=== PATIENT | male | born 1940 | race Caucasian/White ===

== ENCOUNTER 2017-08-02 05:39 | Inpatient (IN) | payer OTHER, MEDICARE ==
[~2017-08-02] VITALS: Ht 182.9 cm; Wt 82.5 kg
[2017-08-02] VITALS (12 sets, daily range): BP systolic 124–160; BP diastolic 66–91; PULSE 78–90; TEMP 36.4–36.8; O2SAT 93–96; Ht 182.9 cm; Wt 82.5 kg
[~2017-08-02 05:39] MED LIST: ASCO500T16 PO; CHOL1000 PO; DOCU-94 PO; DUTA0.5C PO; FERR325T5 PO; FLV1 PO; FSM70 PO; GABA-113 PO; INSDGIPEN SC; LEVO88TA PO; MULT-513 PO; MULTCAP7 PO; PANT40TA PO; PROB1CAP6 PO; THIA1TAB PO
--- NOTE | 2017-08-02 05:56 | EMERGENCY ROOM VISIT NOTE ---
History First contact with patient: 05:41 Stated Complaint: URINARY RETENTION History of Present Illness The patient is a 76 year old male who presents to the Emergency Room evaluation of fluid build up. Notes 2 weeks increasing abdominal size. Associated mild discomfort as well as left leg swelling as well. Over last few days developing some shob with exertion. Notes this morning abdomen so large difficulty laying flat. Denies history of issues with fluid overload. Admits history of CAD with [place]. Denies history of Heart Failure. Denies significant pain, nausea , cp, syncope, shob at rest, headache, back pain, urinary/bowel changes, nor other acute symptoms. No new medications. Nothing makes better, exertion makes worse. Denies increase in fluid intake. Admits 1 etoh drink daily and previous history of heavy use but denies ever being told he has cirrhosis. Denies bloody stools nor other bleeding. Lives with . He is retired. Review of Systems See HPI for pertinent positives & negatives. A total of 10 systems reviewed and were otherwise negative. Past Medical/Surgical History Medical Problems: (1) Coronary artery disease (2) Diabetes mellitus, type II (3) DJD (degenerative joint disease) (4) GERD (gastroesophageal reflux disease) (5) History of atrial fibrillation (6) Hyperlipidemia (7) Hypertension (8) Hypothyroidism (9) Idiopathic peripheral neuropathy (10) Infected prosthetic knee joint (11) Osteomyelitis of right leg (12) Septic arthritis (13) UTI (urinary tract infection) Surgical Problems: (1) Hx of CABG (2) S/P hip replacement (3) Status post right partial knee replacement Family History Abdominal aortic aneurysm MOTHER Social History Smoking Status: Former Smoker Alcohol Use: none Drug Use: none Marital Status: Housing Status: assisted living Occupation Status: retired Current/Historical Medications Scheduled Alendronate Sodium (Alendronate Sodium), 70 MG PO WK Dutasteride (Avodart), 0.5 MG PO QDD Insulin Aspart (Novolog Flexpen), 5-7 UNITS SC QDD Insulin Glargine (Basaglar Kwikpen), 14 UNITS SC QDD Levothyroxine Sodium (Synthroid), 88 MCG PO QAM Metoprolol Succ (Toprol Xl) (Toprol-Xl), 25 MG PO HS Multiple Vitamins W/ Minerals (Eye Vitamins), 1 CAP PO DAILY Multivitamins/Minerals (Mvi With Minerals), 1 TAB PO DAILY Pantoprazole (Protonix), 20 MG PO QAM Probiotic Product (Probiotic Acidophilus), 1 CAP PO DAILY Tamsulosin Hcl (Flomax), 0.4 MG PO QPM Scheduled PRN Tramadol (Ultram), 25 MG PO TID PRN for Pain Physical Exam Vital Signs Date Time Temp Pulse Resp B/P (MAP) Pulse Ox O2 Delivery O2 Flow Rate FiO2 08/02/17 07:50 80 20 131/76 95 Room Air 08/02/17 06:26 84 24 134/88 94 Room Air 08/02/17 06:00 86 08/02/17 05:40 36.9 87 18 167/95 97 Room Air Physical Exam GENERAL: Patient is tired appearing and in mild distress. EYES: No scleral icterus, unremarkable pupils. ENT: Mucous membranes dry, no nasal congestion. NECK: No masses appreciated, no meningismus, trachea is midline. RESPIRATORY: No dyspnea. Clear to auscultation and equal bilaterally. No wheeze , no rhonchi. CARDIOVASCULAR: Regular rate and rhythm. No murmurs, rubs, gallops appreciated. GASTROINTESTINAL: Distended moderately firm abdomen which is non-tender and has pitting edema along lower abdomen. No peritonitis. Distant bowel sounds positive. No masses appreciated. BACK: Mild edema lower back. No midline tenderness, no CVA tenderness EXTREMITIES: Right leg AKA. Left leg with 3 + pitting edema throughout without calf TTP nor pain with ROM. Normal pulses/sensation, no cyanosis. NEUROLOGIC: Alert and oriented, no acute motor or sensory deficits, no focal weakness, cranial nerves grossly intact. SKIN: No rash, no jaundice, no diaphoresis. Medical Decision & Procedures ER Provider Diagnostic Interpretation: Radiology results stated below per my review and radiologist interpretation: CT Abdo/Pelv with IV Contrast IMPRESSION: 1. Large volume ascites. 2. Trace bilateral pleural effusions. 3. Acute to subacute nondisplaced left L2 transverse process fracture. 4. No evidence for bowel obstruction. 5. Colonic diverticulosis. 6. Cholelithiasis. 7. Moderate to high-grade stenosis within the right superficial femoral artery. 8. Cirrhotic liver. Electronically signed by: Camacho Cid M.D. 08/02/2017 7:58 AM Laboratory Results 08/02/17 05:55 Red Blood Count 3.81, Mean Corpuscular Volume 95.0, Mean Corpuscular Hemoglobin 33.6, Mean Corpuscular Hemoglobin Concent 35.4, Mean Platelet Volume 9.8, Neutrophils (%) (Auto) 65.3, Lymphocytes (%) (Auto) 22.0, Monocytes (%) (Auto) 9.1, Eosinophils (%) (Auto) 2.8, Basophils (%) (Auto) 0.4, Neutrophils # (Auto) 3.23, Lymphocytes # (Auto) 1.09, Monocytes # (Auto) 0.45, Eosinophils # (Auto) 0.14, Basophils # (Auto) 0.02 08/02/17 05:55 Test 08/02/17 05:55 White Blood Count 4.95 K/uL (4.8-10.8) Red Blood Count 3.81 M/uL (4.7-6.1) Hemoglobin 12.8 g/dL (14.0-18.0) Hematocrit 36.2 % (42-52) Mean Corpuscular Volume 95.0 fL (80-100) Mean Corpuscular Hemoglobin 33.6 pg (25-34) Mean Corpuscular Hemoglobin Concent 35.4 g/dl (32-36) Platelet Count 112 K/uL (130-400) Mean Platelet Volume 9.8 fL (7.4-10.4) Neutrophils (%) (Auto) 65.3 % Lymphocytes (%) (Auto) 22.0 % Monocytes (%) (Auto) 9.1 % Eosinophils (%) (Auto) 2.8 % Basophils (%) (Auto) 0.4 % Neutrophils # (Auto) 3.23 K/uL (1.4-6.5) Lymphocytes # (Auto) 1.09 K/uL (1.2-3.4) Monocytes # (Auto) 0.45 K/uL (0.11-0.59) Eosinophils # (Auto) 0.14 K/uL (0-0.5) Basophils # (Auto) 0.02 K/uL (0-0.2) RDW Standard Deviation 48.2 fL (36.4-46.3) RDW Coefficient of Variation 13.9 % (11.5-14.5) Immature Granulocyte % (Auto) 0.4 % Immature Granulocyte # (Auto) 0.02 K/uL (0.00-0.02) Prothrombin Time 11.8 SECONDS (9.0-12.0) Prothromb Time International Ratio 1.1 (0.9-1.1) Activated Partial Thromboplast Time 30.2 SECONDS (21.0-31.0) Partial Thromboplastin Ratio 1.2 Anion Gap 3.0 mmol/L (3-11) Est Creatinine Clear Calc Drug Dose 51.1 ml/min Estimated GFR () 59.3 Estimated GFR (Non- 51.2 BUN/Creatinine Ratio 14.4 (10-20) Calcium Level 8.0 mg/dl (8.5-10.1) Magnesium Level 2.0 mg/dl (1.8-2.4) Total Bilirubin 1.1 mg/dl (0.2-1) Direct Bilirubin 0.3 mg/dl (0-0.2) Aspartate Amino Transf (AST/SGOT) 42 U/L (15-37) Alanine Aminotransferase (ALT/SGPT) 35 U/L (12-78) Alkaline Phosphatase 148 U/L (45-117) Troponin I 0.016 ng/ml (0-0.045) Pro-B-Type Natriuretic Peptide 1298 pg/ml (0-1800) Total Protein 7.4 gm/dl (6.4-8.2) Albumin 2.8 gm/dl (3.4-5.0) Lipase 26 U/L (73-393) Medical Decision 76 yr old male with acute worsening of abdominal distension now leading to difficulty breathing. CXR with high diaphragms. Labs looking ok and no clear evidence of this being cardiac in origin. [place] that without history of this going ahead with CT is reasonable. CT reveals large ascites with cirrhotic liver. When confronted about liver findings admits heavy drinking previously. While mild Bili elevation, his INR and other labs look OK and no clear evidence of acute liver failure. He has no fevers nor TTP of abdomen thus I don't feel this represents acute infection/SBP. With amount of ascites in abdomen/low back I do not think that left leg swelling would be DVT related, though will defer imaging to hospitalist. As he can not even take a deep breath due to abdominal distention, is unable to get around without SHOB, and this is a new issue i feel bringing in is reasonable and thus Hospitalist consulted. I do not feel that this represents PE either as he does not primarily have any difficulty breathing at rest nor tachycardia nor hypotensive. Furthermore, I do feel he is intravascularly dehydrated given exam and thus will give very gentle hydration while awaiting hospitalist evaluation. Medication Reconcilliation Current Medication List: was personally reviewed by me Blood Pressure Screening Patient's blood pressure: Normal blood pressure Impression Primary Impression: Anasarca Additional Impressions: Liver failure Ascites due to alcoholic cirrhosis Departure Information Referrals Ifrah Skaggs M.D. (PCP) Problem Qualifiers
[2017-08-02 06:13] LABS: BASO % 0.4 %; BASO ABS # 0.02 K/uL (0-0.2); EOS % 2.8 %; EOS ABS # 0.14 K/uL (0-0.5); HEMATOCRIT 36.2 % (42-52); HEMOGLOBIN 12.8 g/dL (14.0-18.0); IG# 0.02 K/uL (0.00-0.02); LYMPH ABS # 1.09 K/uL (1.2-3.4); MEAN CORPUSCULAR HEMOGLOBIN 33.6 pg (25-34); MEAN CORPUSCULAR HGB CONC 35.4 g/dl (32-36); MEAN PLATELET VOLUME 9.8 fL (7.4-10.4); MONO % 9.1 %; MONO ABS # 0.45 K/uL (0.11-0.59); NEUT % 65.3 %; NEUT ABS # 3.23 K/uL (1.4-6.5); PLATELET COUNT 112 K/uL (130-400); RED CELL DISTRIBUTION WIDTH CV 13.9 % (11.5-14.5); RED CELL DISTRIBUTION WIDTH SD 48.2 fL (36.4-46.3); WHITE BLOOD COUNT 4.95 K/uL (4.8-10.8)
[2017-08-02] MEDS ORDERED: TRAM-10 PO (06:20)
[2017-08-02] MEDS ORDERED: INSU100I23 SC (06:20)
[2017-08-02] MEDS ORDERED: METO25TA3 PO (06:20)
[2017-08-02] MEDS ORDERED: PRT/20 PO (06:20)
[2017-08-02] MEDS ORDERED: NVLGI/PEN SC (06:20)
[2017-08-02] MEDS ORDERED: TAMS0.4C38 PO (06:20)
[2017-08-02 06:22] LABS: INR 1.1 (0.9-1.1); PTT PATIENT 30.2 SECONDS (21.0-31.0)
--- NOTE | 2017-08-02 06:31 | DIAGNOSTIC IMAGING REPORT ---
CHEST ONE VIEW PORTABLE CLINICAL HISTORY: shob with exertion dyspnea COMPARISON STUDY: 04/19/2015 FINDINGS: Poor inspiratory volumes. Lungs are clear. No significant cardiac enlargement. Prior median sternotomy. IMPRESSION: No acute process. Chronic and postoperative change. The above report was generated using voice recognition software. It may contain grammatical, syntax or spelling errors. Electronically signed by: Can Zepeda M.D. 08/02/2017 6:30 AM Dictated Date/Time: 08/02/2017 6:30 AM
[2017-08-02 06:33] LABS: ALBUMIN 2.8 gm/dl (3.4-5.0); CREATININE 1.33 mg/dl (0.60-1.40); POTASSIUM 3.4 mmol/L (3.5-5.1)
[2017-08-02 06:38] LABS: TOTAL PROTEIN 7.4 gm/dl (6.4-8.2)
[2017-08-02] MEDS ORDERED: OPTIRAY 320 IV PRN (07:15)
--- NOTE | 2017-08-02 07:59 | DIAGNOSTIC IMAGING REPORT ---
ABDOMEN AND PELVIS CT WITH IV CONTRAST CT DOSE: 1113.79 mGycm HISTORY: Diffuse abdominal pain. Urinary retention. TECHNIQUE: Multiaxial CT images of the abdomen and pelvis were performed following the use of intravenous contrast. A dose lowering technique was utilized adhering to the principles of ALARA. COMPARISON STUDY: Abdominal ultrasound 10/10/2014. FINDINGS: Trace bilateral pleural effusions. Bibasilar densities favor subsegmental atelectasis. There are poststernotomy changes. There is a left total hip arthroplasty. Old, healed bilateral rib fractures. Nondisplaced left L2 transverse osseous fracture. This favors an acute to subacute fracture. No pneumoperitoneum. No pneumatosis. Large volume ascites. Bladder is not well visualized due to the compression from the ascites and metallic artifact within the left hip prosthesis. However, the bladder is not distended. Colonic diverticulosis. No evidence for bowel obstruction. Normal appendix. Atrophic liver demonstrating a nodular contour consistent with cirrhosis. No hepatic or splenic masses. Calcified granuloma seen throughout the liver and spleen. Cholelithiasis. The adrenal glands are unremarkable. Bilateral cortical renal scarring. No hydronephrosis. No retroperitoneal lymphadenopathy. Near complete fatty replacement of the pancreas. Atrophy of the left iliopsoas muscle. Mild body wall edema. Moderate to high-grade stenosis within the right superficial femoral artery. IMPRESSION: 1. Large volume ascites. 2. Trace bilateral pleural effusions. 3. Acute to subacute nondisplaced left L2 transverse process fracture. 4. No evidence for bowel obstruction. 5. Colonic diverticulosis. 6. Cholelithiasis. 7. Moderate to high-grade stenosis within the right superficial femoral artery. 8. Cirrhotic liver. Electronically signed by: Camacho Cid M.D. 08/02/2017 7:58 AM Dictated Date/Time: 08/02/2017 7:44 AM
[2017-08-02] MEDS ORDERED: SODIUM CHLORIDE 0.9% 1000ML 1,000 ML IV STA (08:09)
[2017-08-02] MEDS ORDERED: SODIUM CHLORIDE 0.9% 1000ML 1,000 ML IV SCH (09:30)
[2017-08-02] MEDS ORDERED: DEXTROSE 50% 50 ML SYR IV PRN (09:30)
[2017-08-02] MEDS ORDERED: GLUCOSE 40% GEL 15 GM TUBE PO PRN (09:30)
[2017-08-02] MEDS ORDERED: GLUCAGON FOR INJ 1 MG VIAL SQ PRN (09:30)
[2017-08-02] MEDS ORDERED: GLUCOSE 10 TABS/TUBE PO PRN (09:30)
--- NOTE | 2017-08-02 09:35 | History and Physical ---
History & Physical Date & Time of Service: Aug 02, 2017 at 09:27 Chief Complaint: Urinary Retention Primary Care Physician: Ifrah Skaggs M.D. History of Present Illness Source: patient, clinic records, hospital records Patient is a 76-year-old male with a PMH of CAD (s/p CABG), DM II, paroxysmal A. fib, HTN, h/o heavy alcohol use and other medical problems listed below who presents with abdominal fullness. States that he has had fluid buildup in his belly for the past 2 weeks with associated discomfort. Over the past few days, patient has become short of breath with any type of exertion. Also has increased swelling and left leg. Denies previous diagnosis of cirrhosis or CHF. Previous history of heavy drinking but has decreased to 1 drink daily for the past 10-15 years. Endorses intermittent nausea and diarrhea over the past few weeks. Poor PO intake due to decreased appetite. Decreased urine output. Denies fever, chills, lightheadedness, headache, visual changes, cough, chest pain, abdominal pain, back pain, dysuria, melena, hematochezia or constipation. Per daughters at bedside, patient has dementia but no acute mental decompensation. Lives with in a house and ambulates by scooter. PCP is Dr. Skaggs. Past Medical/Surgical History Medical Problems: (1) Anemia Status: Chronic (2) Coronary artery disease Status: Chronic (3) Diabetes mellitus, type II Status: Chronic (4) DJD (degenerative joint disease) Status: Chronic (5) GERD (gastroesophageal reflux disease) Status: Chronic (6) History of atrial fibrillation Status: Chronic (7) Hyperlipidemia Status: Chronic (8) Hypertension Status: Chronic (9) Hypothyroidism Status: Chronic (10) Thrombocytopenia Status: Chronic Surgical Problems: (1) Hx of CABG Status: Chronic (2) S/P hip replacement Status: Chronic (3) Status post above knee amputation of right lower extremity Status: Chronic (4) Status post right partial knee replacement Status: Chronic Family History Abdominal aortic aneurysm MOTHER Social History Smoking Status: Former Smoker Alcohol Use: heavy (Remote h/o heavy use. 1 drink daily for the past 10-15 years. ) Drug Use: none Marital Status: Housing status: lives with significant other Occupational Status: retired Immunizations History of Influenza Vaccine: Yes Influenza Vaccine Date: Jan 15, 2008 History of Tetanus Vaccine?: Yes History of Pneumococcal: Yes Pneumococcal Date: Jan 15, 2004 History of Hepatitis B Vaccine: No Allergies Coded Allergies: Vancomycin (Verified Allergy, Unknown, 08/02/17) Linezolid (Verified Adverse Reaction, Severe, thrombocytopenia, 08/02/17) Ethanol (Verified Adverse Reaction, Intermediate, GI SYMPTOMS, 08/02/17) Fentanyl (Verified Adverse Reaction, Intermediate, GI SYMPTOMS, 08/02/17) Carvedilol (Verified Adverse Reaction, Unknown, NAUSEA AND VOMITING, ) HMG-CoA-R Inhibitors (Verified Adverse Reaction, Unknown, STATINS, 08/02/17 ) Simvastatin (Verified Adverse Reaction, Unknown, ., 08/02/17) Home Medications Scheduled Alendronate Sodium (Alendronate Sodium), 70 MG PO WK Dutasteride (Avodart), 0.5 MG PO QDD Insulin Aspart (Novolog Flexpen), 5-7 UNITS SC QDD Insulin Glargine (Basaglar Kwikpen), 14 UNITS SC HS Levothyroxine Sodium (Synthroid), 88 MCG PO QAM Metoprolol Succ (Toprol Xl) (Toprol-Xl), 25 MG PO HS Multiple Vitamins W/ Minerals (Eye Vitamins), 1 CAP PO DAILY Multivitamins/Minerals (Mvi With Minerals), 1 TAB PO DAILY Pantoprazole (Protonix), 20 MG PO QAM Probiotic Product (Probiotic Acidophilus), 1 CAP PO DAILY Tamsulosin Hcl (Flomax), 0.4 MG PO QPM Scheduled PRN Tramadol (Ultram), 0.5-1 TAB PO TID PRN for Pain Review of Systems Ten systems reviewed and negative except as noted in the HPI. Physical Exam Vital Signs Date Time Temp Pulse Resp B/P (MAP) Pulse Ox O2 Delivery O2 Flow Rate FiO2 08/02/17 09:14 79 08/02/17 08:50 81 22 144/80 96 Room Air 08/02/17 08:21 95 Room Air 08/02/17 07:50 80 20 131/76 95 Room Air 08/02/17 06:26 84 24 134/88 94 Room Air 08/02/17 06:00 86 08/02/17 05:40 36.9 87 18 167/95 97 Room Air General Appearance: WD/WN, no apparent distress Head: normocephalic, atraumatic Eyes: normal inspection, PERRL, sclerae normal ENT: normal ENT inspection, hearing grossly normal, pharynx normal (dry mucous membranes ) Neck: supple, thyroid normal, trachea midline Respiratory/Chest: chest non-tender, lungs clear, normal breath sounds, no respiratory distress, no accessory muscle use Cardiovascular: regular rate, rhythm, normal peripheral pulses, + systolic murmur Abdomen/GI: normal bowel sounds (distant), non tender, no pulsatile mass, + distended (Firm, + fluid wave, no guarding ) Back: normal inspection Extremities/Musculoskelatal: + swelling (L leg 3+ pitting edema ), + pertinent finding (s/p R AKA) Neurologic/Psych: no motor/sensory deficits, alert, normal mood/affect, oriented x 3 Skin: normal color, warm/dry Diagnostics Laboratory Results Results Past 24 Hours Test 08/02/17 05:55 Range/Units White Blood Count 4.95 4.8-10.8 K/uL Red Blood Count 3.81 4.7-6.1 M/uL Hemoglobin 12.8 14.0-18.0 g/dL Hematocrit 36.2 42-52 % Mean Corpuscular Volume 95.0 80-100 fL Mean Corpuscular Hemoglobin 33.6 25-34 pg Mean Corpuscular Hemoglobin Concent 35.4 32-36 g/dl Platelet Count 112 130-400 K/uL Mean Platelet Volume 9.8 7.4-10.4 fL Neutrophils (%) (Auto) 65.3 % Lymphocytes (%) (Auto) 22.0 % Monocytes (%) (Auto) 9.1 % Eosinophils (%) (Auto) 2.8 % Basophils (%) (Auto) 0.4 % Neutrophils # (Auto) 3.23 1.4-6.5 K/uL Lymphocytes # (Auto) 1.09 1.2-3.4 K/uL Monocytes # (Auto) 0.45 0.11-0.59 K/uL Eosinophils # (Auto) 0.14 0-0.5 K/uL Basophils # (Auto) 0.02 0-0.2 K/uL RDW Standard Deviation 48.2 36.4-46.3 fL RDW Coefficient of Variation 13.9 11.5-14.5 % Immature Granulocyte % (Auto) 0.4 % Immature Granulocyte # (Auto) 0.02 0.00-0.02 K/uL Prothrombin Time 11.8 9.0-12.0 SECONDS Prothromb Time International Ratio 1.1 0.9-1.1 Activated Partial Thromboplast Time 30.2 21.0-31.0 SECONDS Partial Thromboplastin Ratio 1.2 Sodium Level 140 136-145 mmol/L Potassium Level 3.4 3.5-5.1 mmol/L Chloride Level 107 98-107 mmol/L Carbon Dioxide Level 31 21-32 mmol/L Anion Gap 3.0 3-11 mmol/L Blood Urea Nitrogen 19 7-18 mg/dl Creatinine 1.33 0.60-1.40 mg/dl Est Creatinine Clear Calc Drug Dose 51.1 ml/min Estimated GFR () 59.3 Estimated GFR (Non- 51.2 BUN/Creatinine Ratio 14.4 10-20 Random Glucose 90 70-99 mg/dl Calcium Level 8.0 8.5-10.1 mg/dl Magnesium Level 2.0 1.8-2.4 mg/dl Total Bilirubin 1.1 0.2-1 mg/dl Direct Bilirubin 0.3 0-0.2 mg/dl Aspartate Amino Transf (AST/SGOT) 42 15-37 U/L Alanine Aminotransferase (ALT/SGPT) 35 12-78 U/L Alkaline Phosphatase 148 45-117 U/L Troponin I 0.016 0-0.045 ng/ml Pro-B-Type Natriuretic Peptide 1298 0-1800 pg/ml Total Protein 7.4 6.4-8.2 gm/dl Albumin 2.8 3.4-5.0 gm/dl Lipase 26 73-393 U/L Diagnostic Radiology CXR: IMPRESSION: No acute process. Chronic and postoperative change. CT abd/pelvis: IMPRESSION: 1. Large volume ascites. 2. Trace bilateral pleural effusions. 3. Acute to subacute nondisplaced left L2 transverse process fracture. 4. No evidence for bowel obstruction. 5. Colonic diverticulosis. 6. Cholelithiasis. 7. Moderate to high-grade stenosis within the right superficial femoral artery. 8. Cirrhotic liver. EKG Normal sinus rhythm, Left axis deviation, Pulmonary disease pattern, Right bundle branch block No change from prior EKG Impression Assessment and Plan Patient is a 76-year-old male with a PMH of CAD (s/p CABG), DM II, paroxysmal A. fib, HTN, h/o heavy alcohol use and other medical problems listed below who presents with abdominal fullness and was found to have decompensated new onset cirrhosis. Decompensated new onset cirrhosis: -H/o heavy alcohol use -Two weeks of abd fullness, LLE swelling -CT abd pelvis with large volume ascites, cirrhotic liver, trace bilateral pleural effusions -T bili: 1.1, D bili: 0.3, AST: 42, ALT: 35, Alk phos: 148 -BNP elevated to 1298. Repeat echo to evaluate for CHF -GI consulted -Plan for paracentesis -Monitor CMP CAD: -s/p prior CABG -Stable, no CP or related symptoms -EKG without acute changes DM II: -HbA1c pending -Hold home agents while in hospital -insulin correction scale while in hospital -BSG AC and HS Paroxysmal A Fib: -NSR on EKG -Continue metoprolol HTN: -Normotensive -Continue metoprolol Hypothyroidism : -Continue levothyroxine BPH: -Continue avodart, flomax -Bladder scan q shift Osteoporosis: -Continue fosamax weekly Thrombocytopenia: -Chronic -Platelets 112 -SCDs DVT Ppx: SCDs Code status: FULL, per discussion with patient PCP: Sharifa Dispo: Admit to med/surg. Discharge planning ordered. Patient seen in collaboration with Dr. Parson. Please see addendum. Attending addendum: Patient and examined; agree with the above H&P; please refer to above for more detail Patient was seen with his family at the bedside. He reports several weeks of increasing abdominal distension and more recently increased orthopnea and SOB. He states he feels full and as a result has not been taking in as much PO. Denies any changes to bowel habits. Denies any N/V. Cardiac: RR, S1 and S2 auscultated, + anasarca Resp: diminished bases bilaterally, otherwise CTA GI: abdomen protuberant, +ascites +fluid wave, mildly tender diffusely, unable to palpate for organomegaly MSK: right AKA, LLE with edema ACUTE DECOMPENSATED CIRRHOSIS: -no prior history of ascites, no known cirrhosis but patient was a heavy alcohol user in the past and drinks mild-moderately now -GI consulted -Abdomen US -Paracentesis with fluid for culture, cell differential, and cytology as well as albumin, LDH Advanced Directives Existing Living Will: Yes Existing Power of Car Starter: Yes Resuscitation Status VTE Prophylaxis Will order VTE Prophylaxis: Yes
[2017-08-02] MEDS ORDERED: TRAMADOL HCL 50 MG TAB PO PRN (10:45)
[2017-08-02] MEDS ORDERED: POTASSIUM CHLORIDE INJ 40 MEQ in SODIUM CHLORIDE 0.9% 1000ML 1,000 ML IV SCH (11:00)
--- NOTE | 2017-08-02 11:13 | Gastrointestinal Consultation ---
Gastrointestinal Consultation Date of Consultation: Aug 02, 2017 Attending Physician: Dr. Parson Consulting Physician: Dr. Ross Reason for Consultation: Cirrhosis/Ascites History of Present Illness Patient is a 76 year old male presented through the ED this morning for complaints of belly and mild leg swelling along with weight gain. He has been noticing progressive abdominal distension over the last few days. He reports drinking alcohol (approximately 3 times a day), denies ivda/ intranasal drug use now or previously, no tatoos or piercings, no family history of liver disease. He denies any recent intake of excessive salt. He denies any hematemesis/bowel habit changes except for loose stool once, no dark tarry stools, no chest pain, no nausea or vomiting. He endorses mild dyspnea. On review of labs- mild anemia (12.8/36), thrombocytopenia (112), no coagulopathy, lft's mild elevated (TB 1.1, AST 42, ALT 35, AP 148), and creatinine elevation (1.3). Cxray relatively unremarkable. CT A/P with contrast: significant for trace bilateral pleural effusion, large volume ascites, cirrhosis of the liver, no bowel obstruction. Past Medical/Surgical History Medical Problems: (1) Ascites due to alcoholic cirrhosis Status: Acute Past Medical History: Past Medical/Surgical History Medical Problems: (1) Anemia Status: Chronic (2) Coronary artery disease Status: Chronic (3) Diabetes mellitus, type II Status: Chronic (4) DJD (degenerative joint disease) Status: Chronic (5) GERD (gastroesophageal reflux disease) Status: Chronic (6) History of atrial fibrillation Status: Chronic (7) Hyperlipidemia Status: Chronic (8) Hypertension Status: Chronic (9) Hypothyroidism Status: Chronic (10) Thrombocytopenia Status: Chronic Surgical Problems: (1) Hx of CABG Status: Chronic (2) S/P hip replacement Status: Chronic (3) Status post above knee amputation of right lower extremity Status: Chronic (4) Status post right partial knee replacement Status: Chronic Family History Abdominal aortic aneurysm MOTHER Social History Smoking Status: Former Smoker Alcohol Use: occasionally (approximately 3 beers a day) Drug Use: none Marital Status: Housing Status: lives with significant other Occupation Status: retired Allergies Coded Allergies: Vancomycin (Verified Allergy, Unknown, 08/02/17) Linezolid (Verified Adverse Reaction, Severe, thrombocytopenia, 08/02/17) Ethanol (Verified Adverse Reaction, Intermediate, GI SYMPTOMS, 08/02/17) Fentanyl (Verified Adverse Reaction, Intermediate, GI SYMPTOMS, 08/02/17) Carvedilol (Verified Adverse Reaction, Unknown, NAUSEA AND VOMITING, ) HMG-CoA-R Inhibitors (Verified Adverse Reaction, Unknown, STATINS, 08/02/17 ) Simvastatin (Verified Adverse Reaction, Unknown, ., 08/02/17) Current Medications Home Meds and Scripts Medications Dose Route/Sig Max Daily Dose Days Date Category Dose Instructions Novolog Flexpen (Insulin Aspart) 100 Units/Ml Inj 5-7 Units SC QDD 08/02/17 Reported Toprol-Xl (Metoprolol Succinate) 25 Mg Tabcr 25 Mg PO HS 08/02/17 Reported Flomax (Tamsulosin Hcl) 0.4 Mg Cap 0.4 Mg PO QPM 08/02/17 Reported Ultram (Tramadol HCl) 50 Mg Tab 0.5-1 Tab PO TID PRN 08/02/17 Reported Basaglar Kwikpen (Insulin Glargine) 100 Unit/Ml Inj 14 Units SC HS 08/02/17 Reported Protonix (Pantoprazole Sodium) 20 Mg Tab 20 Mg PO QAM 08/02/17 Reported Avodart (Dutasteride) 0.5 Mg Cap 0.5 Mg PO QDD 04/14/15 Reported Alendronate Sodium 70 Mg Tab 70 Mg PO WK 04/14/15 Reported TAKES ON WEDNESDAYS. Probiotic Acidophilus (Probiotic Product) 1 Cap Cap 1 Cap PO DAILY 04/14/15 Reported Eye Vitamins (Multiple Vitamins W/ Minerals) 1 Cap Cap 1 Cap PO DAILY 04/14/15 Reported Mvi With Minerals (Multivitamins/Minerals) Tab 1 Tab PO DAILY 11/18/14 Reported Synthroid (Levothyroxine Sodium) 88 Mcg Tab 88 Mcg PO QAM 04/29/13 Reported Review of Systems Constitutional: No fever, No chills, No weight loss ENT: No trouble swallowing Respiratory: + shortness of breath (Mild), No cough Cardiac: No chest pain Abdomen: + see HPI Male : No dysuria Neuro: No memory loss, No balance problems Heme: No abnormal bleeding/bruising Endo: No fatigue Skin: No rash Physical Exam Date Time Temp Pulse Resp B/P (MAP) Pulse Ox O2 Delivery O2 Flow Rate FiO2 08/02/17 09:35 79 21 132/75 95 08/02/17 09:14 79 08/02/17 08:50 81 22 144/80 96 Room Air 08/02/17 08:21 95 Room Air 08/02/17 07:50 80 20 131/76 95 Room Air 08/02/17 06:26 84 24 134/88 94 Room Air 08/02/17 06:00 86 08/02/17 05:40 36.9 87 18 167/95 97 Room Air General Appearance: WD/WN, no apparent distress, + thin Eyes: normal inspection, PERRL, EOMI ENT: normal ENT inspection, hearing grossly normal Neck: supple, no adenopathy, no JVD, trachea midline Respiratory/Chest: lungs clear, normal breath sounds, no respiratory distress, no accessory muscle use Cardiovascular: regular rate, rhythm, no edema, no gallop, no JVD, no murmur Abdomen: normal bowel sounds, non tender, + distended Extremities: + swelling, + pertinent finding (Right AKA) 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, alert, normal mood/affect Laboratory Results Last 24 Hours Test 08/02/17 05:55 08/02/17 09:25 08/02/17 10:11 White Blood Count 4.95 K/uL Red Blood Count 3.81 M/uL Hemoglobin 12.8 g/dL Hematocrit 36.2 % Mean Corpuscular Volume 95.0 fL Mean Corpuscular Hemoglobin 33.6 pg Mean Corpuscular Hemoglobin Concent 35.4 g/dl Platelet Count 112 K/uL Mean Platelet Volume 9.8 fL Neutrophils (%) (Auto) 65.3 % Lymphocytes (%) (Auto) 22.0 % Monocytes (%) (Auto) 9.1 % Eosinophils (%) (Auto) 2.8 % Basophils (%) (Auto) 0.4 % Neutrophils # (Auto) 3.23 K/uL Lymphocytes # (Auto) 1.09 K/uL Monocytes # (Auto) 0.45 K/uL Eosinophils # (Auto) 0.14 K/uL Basophils # (Auto) 0.02 K/uL RDW Standard Deviation 48.2 fL RDW Coefficient of Variation 13.9 % Immature Granulocyte % (Auto) 0.4 % Immature Granulocyte # (Auto) 0.02 K/uL Prothrombin Time 11.8 SECONDS Prothromb Time International Ratio 1.1 Activated Partial Thromboplast Time 30.2 SECONDS Partial Thromboplastin Ratio 1.2 Sodium Level 140 mmol/L Potassium Level 3.4 mmol/L Chloride Level 107 mmol/L Carbon Dioxide Level 31 mmol/L Anion Gap 3.0 mmol/L Blood Urea Nitrogen 19 mg/dl Creatinine 1.33 mg/dl Est Creatinine Clear Calc Drug Dose 51.1 ml/min Estimated GFR () 59.3 Estimated GFR (Non- 51.2 BUN/Creatinine Ratio 14.4 Random Glucose 90 mg/dl Calcium Level 8.0 mg/dl Magnesium Level 2.0 mg/dl Total Bilirubin 1.1 mg/dl Direct Bilirubin 0.3 mg/dl Aspartate Amino Transf (AST/SGOT) 42 U/L Alanine Aminotransferase (ALT/SGPT) 35 U/L Alkaline Phosphatase 148 U/L Troponin I 0.016 ng/ml Pro-B-Type Natriuretic Peptide 1298 pg/ml Total Protein 7.4 gm/dl Albumin 2.8 gm/dl Lipase 26 U/L Urine Color DK YELLOW Urine Appearance CLEAR Urine pH 6.5 Urine Specific [place] > 1.045 Urine Protein NEG Urine Glucose (UA) NEG Urine Ketones NEG Urine Occult Blood NEG Urine Nitrite NEG Urine Bilirubin NEG Urine Urobilinogen NEG Urine Leukocyte Esterase NEG Urine WBC (Auto) 1-5 /hpf Urine RBC (Auto) 10-30 /hpf Urine Hyaline Casts (Auto) 1-5 /lpf Urine Epithelial Cells (Auto) 20-30 /lpf Urine Bacteria (Auto) NEG Bedside Glucose 78 mg/dl Impression Patient is a 76 year old male with cadz with prior cabg, type 2 dm with right aka, paroxysamal afib, htn, now admitted for abdominal swelling and imaging consistent with a new diagnosis of cirrhosis and ascites, current MELD 10. Plan 1. Cirrhosis- MELD 10, would check viral hepatitis serologies (hepatitis a/b/c) , would check autoimmune serologies (NESHA, AMA, ASMA, SPEP), would also for a1at deficiency, oren's (serum ceruloplasmin), hemochromatosis (iron panel including trans sat and ferritin). Slightly decompensated given new diagnosis of ascites. He does not have hepatic encephalopathy, hgb is stable without signs of overt gi blood loss. 2. Ascites- would recommend abdominal ultrasound with doppler (to evaluate hepatic vein/artery/portal vein) and for diagnostic/therapeutic drainage of his ascites. Would send ascitic fluid for total protein, albumin, cell count, cytology, culture. Would start low dose Lasix 40 mg/Aldactone 100 mg, low salt diet (less than 2 grams daily). Discussed with patient about etoh cessation. Would recommend less than 2 grams of Tylenol daily. Would recommend supplemental albumin (25% 25 grams IV once prior to paracentesis) and then additional albumin if more than 4 Liters is drained during paracentesis (25% 25 grams IV once). Attg add: I interviewed and examined pt, reviewed chart and labs. Pt with new onset ascites. CT suggests cirrhosis, portal HTN. Check ascitic fluid studies , r/o venous thrombosis, begin diuresis.
[2017-08-02] MEDS: ALBUMIN HUMAN 25% 12.5 GM/50 ML VIAL IV SCH ×4 (11:42→16:46)
[2017-08-02] MEDS: INSULIN ASPART 100 UNITS/ML 3 ML PEN SC SCH ×3 (12:04→20:44)
[2017-08-02 13:29] LABS: HEP C IGG 13 YRS+OLDER_RFLX NEG (NEG)
--- NOTE | 2017-08-02 15:22 | DIAGNOSTIC IMAGING REPORT ---
ULTRASOUND DUPLEX STUDY OF THE PORTAL AND HEPATIC VEINS CLINICAL HISTORY: No onset ascites. Cirrhosis. COMPARISON STUDY: No previous studies for comparison. FINDINGS: The hepatic and portal veins were patent with normal directional flow. There is ascites present. IMPRESSION: 1. Ascites 2. The hepatic and portal veins are patent with normal directional flow Electronically signed by: Jacob Goff M.D. 08/02/2017 3:21 PM Dictated Date/Time: 08/02/2017 3:19 PM
--- NOTE | 2017-08-02 15:23 | DIAGNOSTIC IMAGING REPORT ---
PARACENTESIS UNDER ULTRASOUND GUIDANCE CLINICAL HISTORY: ascites COMPARISON STUDY: CT scan dated 08/02/2017 FINDINGS: The risks, benefits, and alternatives to the procedure were discussed with the patient. Written informed consent was obtained. Following real-time ultrasound localization, the skin was prepped and draped. Following local anesthesia with Xylocaine, the sheath paracentesis needle was inserted and approximately 4 liters of straw-colored fluid was removed by vacuum suction. The patient tolerated the procedure well and left the department in satisfactory condition. IMPRESSION: Successful ultrasound-guided paracentesis with removal of approximately 4 liters of ascitic fluid. Electronically signed by: Jacob Goff M.D. 08/02/2017 3:22 PM Dictated Date/Time: 08/02/2017 3:22 PM
[2017-08-02] MEDS: AVODART-ORDER AWAITING ACTION SCH ×2 (16:00→23:48)
[2017-08-02] MEDS: INSULIN GLARGINE SOLOSTAR 100 UNITS/ML 3 ML PEN SC SCH (20:45)
[2017-08-02] MEDS: METOPROLOL SUCC 25MG EXT REL TAB PO SCH (20:45)
[2017-08-02] MEDS: TAMSULOSIN HCL 0.4 MG CAP PO SCH (20:45)
[2017-08-02] MEDS ORDERED: ALENDRONATE SODIUM 70 MG TAB PO SCH (21:00)
[2017-08-03] MEDS: LEVOTHYROXINE 88 MCG TAB PO SCH (06:19)
[2017-08-03] MEDS: AVODART-ORDER AWAITING ACTION SCH ×3 (07:20→23:44)
[2017-08-03 07:52] LABS: HEMATOCRIT 30.9 % (42-52); HEMOGLOBIN 10.8 g/dL (14.0-18.0); MEAN CELL VOLUME 95.4 fL (80-100); MEAN CORPUSCULAR HEMOGLOBIN 33.3 pg (25-34); RED CELL DISTRIBUTION WIDTH CV 13.6 % (11.5-14.5); RED CELL DISTRIBUTION WIDTH SD 47.7 fL (36.4-46.3); WHITE BLOOD COUNT 4.48 K/uL (4.8-10.8)
[2017-08-03 07:58] VITALS: BP 109/67; PULSE 71; TEMP 36.7; O2SAT 93
[2017-08-03 08:07] LABS: INR 1.2 (0.9-1.1); PTT PATIENT 35.9 SECONDS (21.0-31.0)
[2017-08-03 08:15] LABS: MEAN PLATELET VOLUME 10.5 fL (7.4-10.4); PLATELET COUNT 89 K/uL (130-400)
[2017-08-03] MEDS: SPIRONOLACTONE 100 MG TAB PO SCH (08:23)
[2017-08-03] MEDS: CEROVITE ADV FORMULA TAB PO SCH (08:23)
[2017-08-03] MEDS: PANTOprazole SOD 40 MG TAB PO SCH (08:24)
[2017-08-03] MEDS: FUROSEMIDE 40 MG TAB PO SCH (08:24)
[2017-08-03] MEDS: INSULIN ASPART 100 UNITS/ML 3 ML PEN SC SCH ×4 (08:30→20:46)
[2017-08-03 08:31] LABS: ALBUMIN 2.4 gm/dl (3.4-5.0); CALCIUM 7.4 mg/dl (8.5-10.1); CREATININE 1.13 mg/dl (0.60-1.40); POTASSIUM 4.3 mmol/L (3.5-5.1); TOTAL PROTEIN 5.6 gm/dl (6.4-8.2)
[2017-08-03 09:00] LABS: HEMOGLOBIN A1C 6.5 % (4.5-5.6)
[2017-08-03] MEDS ORDERED: MINERALS PO SCH (09:00)
[2017-08-03] MEDS ORDERED: MULTIPLE VITAMINS PO SCH (09:00)
[2017-08-03] MEDS ORDERED: PERFLUTREN LIPID MICROSPHERE (DEFINITY) IV ONE (09:31)
--- NOTE | 2017-08-03 12:33 | Gastroenterology Progress Note ---
Progress Note Date of Service: Aug 03, 2017 Subjective Pt evaluation today including: conversation w/ patient, conversation w/ family , physical exam, lab review, review of studies, review of inpatient medication list Patient feels slightly better after 4 liter paracentesis on 08/02 (Mon), received supplemental albumin pre and post drainage. No complaints of having abdominal pain, still feels slightly distended. No reports of melena, hematochezia, confusion. Good appetite. Review of Systems Constitutional: No fever, No chills Respiratory: No cough, No sputum, No shortness of breath Cardiac: No chest pain Abdomen: + see HPI Medications Current Inpatient Medications Medications (Trade) Dose Ordered Sig/Milena Route Start Time Stop Time Status Last Admin Dose Admin Ioversol (Optiray 320) 100 ml UD PRN IV 08/02/17 07:15 08/06/17 07:14 Insulin Aspart (novoLOG ASPART) SLIDING SCALE If C... ACHS SC 08/02/17 11:00 09/01/17 10:59 08/03/17 12:00 8 UNITS Glucose (Glucose 40% Gel) 15-30 GRAMS 15 GRAMS... UD PRN PO 08/02/17 09:30 09/01/17 09:29 Glucose (Glucose Chew Tab) 4-8 Tablets 4 Tabl... UD PRN PO 08/02/17 09:30 09/01/17 09:29 Dextrose (Dextrose 50% 50ML Syringe) 25-50ML OF 50% DW IV FOR... UD PRN IV 08/02/17 09:30 09/01/17 09:29 Glucagon (Glucagon Inj) 1 mg UD PRN SQ 08/02/17 09:30 09/01/17 09:29 Alendronate Sodium (Fosamax Tab) 70 mg We@0630 PO 08/02/17 21:00 09/01/17 20:59 08/02/17 20:45 70 MG Levothyroxine Sodium (Synthroid Tab) 88 mcg DAILYBB PO 08/03/17 06:30 09/02/17 06:29 08/03/17 06:19 88 MCG Metoprolol Succinate (Toprol Xl Tab) 25 mg HS PO 08/02/17 21:00 09/01/17 20:59 08/02/17 20:45 25 MG Multivitamins/ Minerals (Multivitamin W/ Minerals Tab) 1 tab DAILY PO 08/03/17 09:00 09/02/17 08:59 08/03/17 08:23 1 TAB Tamsulosin HCl (Flomax Cap) 0.4 mg QPM PO 08/02/17 21:00 09/01/17 20:59 08/02/17 20:45 0.4 MG Tramadol HCl (Ultram Tab) 25 mg TID PRN PO 08/02/17 10:45 09/01/17 10:44 Miscellaneous Information (Order Awaiting Action) 1 ea QS N/A 08/02/17 16:00 09/01/17 15:59 Pantoprazole Sodium (Protonix Tab) 40 mg QAM PO 08/03/17 09:00 09/02/17 08:59 08/03/17 08:24 40 MG Furosemide (Lasix Tab) 40 mg QAM PO 08/03/17 09:00 09/02/17 08:59 08/03/17 08:24 40 MG Spironolactone (Aldactone Tab) 100 mg QAM PO 08/03/17 09:00 09/02/17 08:59 08/03/17 08:23 100 MG Insulin Glargine (Lantus Solostar Pen) 5 units HS SC 08/02/17 21:00 09/01/17 20:59 08/02/17 20:45 5 UNITS Objective Vital Signs Date Time Temp Pulse Resp B/P (MAP) Pulse Ox O2 Delivery O2 Flow Rate FiO2 08/03/17 08:00 Room Air 08/03/17 07:58 36.7 71 18 109/67 (81) 93 Room Air 08/03/17 00:00 Room Air 08/02/17 22:55 36.8 80 18 124/66 (85) 95 Room Air 08/02/17 18:12 36.8 90 18 131/73 (92) 94 Room Air 08/02/17 17:02 36.8 78 18 148/70 (96) 94 Room Air 08/02/17 16:00 Room Air 08/02/17 15:46 36.6 80 18 143/82 (102) 95 Room Air 08/02/17 14:04 36.6 80 18 158/88 (111) 95 Room Air 08/02/17 13:45 36.6 83 18 153/77 (102) 94 Room Air 08/02/17 13:30 36.6 82 18 145/77 (99) 96 Room Air 08/02/17 13:00 36.6 87 18 143/81 (101) 93 Room Air Physical Exam General Appearance: WD/WN, no apparent distress Eyes: normal inspection, PERRL, EOMI Neck: supple, thyroid normal, no JVD Respiratory/Chest: chest non-tender, lungs clear, normal breath sounds, no respiratory distress Cardiovascular: regular rate, rhythm, no edema, no gallop, no JVD Abdomen: normal bowel sounds, non tender, + distended (still with moderate amount of ascites) 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, no motor/sensory deficits, alert Skin: normal color, no jaundice Laboratory Results Last 24 Hours Test 08/02/17 16:42 08/02/17 19:35 08/03/17 07:08 08/03/17 08:21 Bedside Glucose 124 mg/dl 183 mg/dl 95 mg/dl White Blood Count 4.48 K/uL Red Blood Count 3.24 M/uL Hemoglobin 10.8 g/dL Hematocrit 30.9 % Mean Corpuscular Volume 95.4 fL Mean Corpuscular Hemoglobin 33.3 pg Mean Corpuscular Hemoglobin Concent 35.0 g/dl RDW Standard Deviation 47.7 fL RDW Coefficient of Variation 13.6 % Platelet Count 89 K/uL Mean Platelet Volume 10.5 fL Platelet Estimate DECREASED Prothrombin Time 12.7 SECONDS Prothromb Time International Ratio 1.2 Activated Partial Thromboplast Time 35.9 SECONDS Partial Thromboplastin Ratio 1.4 Sodium Level 140 mmol/L Potassium Level 4.3 mmol/L Chloride Level 109 mmol/L Carbon Dioxide Level 26 mmol/L Anion Gap 4.0 mmol/L Blood Urea Nitrogen 15 mg/dl Creatinine 1.13 mg/dl Est Creatinine Clear Calc Drug Dose 60.1 ml/min Estimated GFR () 72.3 Estimated GFR (Non- 62.4 BUN/Creatinine Ratio 13.0 Random Glucose 101 mg/dl Estimated Average Glucose 140 mg/dl Hemoglobin A1c 6.5 % Calcium Level 7.4 mg/dl Total Bilirubin 0.9 mg/dl Aspartate Amino Transf (AST/SGOT) 30 U/L Alanine Aminotransferase (ALT/SGPT) 25 U/L Alkaline Phosphatase 101 U/L Total Protein 5.6 gm/dl Albumin 2.4 gm/dl Globulin 3.2 gm/dl Albumin/Globulin Ratio 0.8 Test 08/03/17 11:31 Bedside Glucose 180 mg/dl MELD score 10 (INR 1.2, Bilirubin natalio 1, Cr 1.1), Na 140, Alb 2.5 Assessment and Plan 76 yo male with new diagnosis of cirrhosis made on imaging when admitted for new onset ascites. ->Ascites- imaging shows patent portal vasculature, SAAG less than 1.1 and t protein <2 consistent with liver source. No evidence of SBP at this time. S/p 4 liter paracentesis on 08/03/17 with albumin given pre and post procedure, stable creatinine this am. Receiving Lasix 40 mg daily/Aldactone 100 mg daily with minimal urine output- would continue current dose and monitor. Would plan for repeat paracentesis on Monday for therapaeutic relief given today's exam shows a moderate amount of ascites. -> Cirrhosis- meld 10, etiology still pending, mildy decompensated only with ascites at this time, will plan for outpatient EGD for variceal screen (likely at [facility]). - Will follow with myself in [facility] as an outpatient in 1-2 weeks. Attg : I interviewed and examined pt, reviewed chart and labs. Ascitic fluid studies show portal HTN related ascites. Please arrange for repeat tap, ok for d.c on diuretics (doses above) tomorrow. Please call with questions.
[2017-08-03 15:43] VITALS: BP 134/81; PULSE 81; TEMP 36.7; O2SAT 93
--- NOTE | 2017-08-03 16:57 | ECHOCARDIOGRAM REPORT ---
*NOTICE TO RECEIVING LIBERTARIAN AGENCY This information is strictly Confidential and protected under [place] law. [place] law prohibits you from making any further disclosure of this information unless further disclosure is expressly permitted by the written consent of the person to whom it pertains or is authorized by law. A general authorization for the release of medical or other information is not sufficient for this purpose. Hospital accepts no responsibility if the information is made available to any other person, INCLUDING THE PATIENT. Interpretation Summary * Name: MEAGHAN HARVEY Study Date: 08/03/2017 07:33 AM BP: 124/66 mmHg * Patient Location: .[id number]\[id number]\1 HR: 65 * : 1940 (M/d/yyyy) Gender: Male Height: 72 in * Age: 76 yrs Ethnicity: CA Weight: 181 lb * Ordering Physician: Keisha Abebe * Referring Physician: Self, Referred * Performed By: Marialuisa Elkins RDCS * * Reason For Study: Possible CHF * BSA: 2.0 m2 * The study was technically limited. * Compared to prior study, there is no significant change. * -- Conclusions -- * Ejection Fraction = 55-60%. * Aortic valve sclerosis moderate, without significant aortic valvular stenosis. * Calcified mitral apparatus. * There is moderate to severe mitral annular calcification. * There is no mitral valve stenosis. * Mild aortic root dilatation. * Grade I diastolic dysfunction, (abnormal relaxation pattern). Procedure Details * A complete two-dimensional transthoracic echocardiogram was performed (2D, M-mode, Doppler and color flow Doppler). * A contrast injection of Definity was performed to improve assessment of LV function. * Contrast was injected into an intravenous site in the right arm. * One vial of Definity ultrasound contrast was diluted in normal saline to a total volume of 10 ml. A total of '1' ml of solution was administered during imaging. * Lot # [id number] of Definity utilized for procedure. * Expiration date JUL 27. * The attending nurse who injected the contrast agent was Devon Peters RN. Left Ventricle * The left ventricle is normal in size. * There is no thrombus. * There is mild concentric left ventricular hypertrophy. * Ejection Fraction = 55-60%. * Left ventricular systolic function is normal. * No regional wall motion abnormalities noted. Right Ventricle * The right ventricle is normal size. * The right ventricular systolic function is normal as assessed by tricuspid annular plane systolic excursion (TAPSE) (normal >1.5 cm). Atria * The left atrium is mildly dilated. * Right atrial size is normal. * There is no evidence of atrial septal defect, but resolution does not allow assessment for a patent foramen ovale. Mitral Valve * Calcified mitral apparatus. * There is moderate to severe mitral annular calcification. * There is no mitral valve stenosis. * Significant mitral regurgitation is absent. Tricuspid Valve * The tricuspid valve is normal. * There is no tricuspid stenosis. * Significant tricuspid regurgitation is absent. Aortic Valve * The aortic valve is not well visualized. * Aortic valve appears moderately calcified. * Aortic valve sclerosis moderate, without significant aortic valvular stenosis. * Aortic stenosis is absent. * There is no significant aortic regurgitation. Pulmonic Valve * The pulmonary valve is not well seen, but the Doppler examination is normal without significant regurgitation or stenosis. Great Vessels * Mild aortic root dilatation. Pericardium/Pleural * There is no pericardial effusion. Great Vessels * IVC not well visualized. Left Ventricular Diastolic Function * Grade I diastolic dysfunction, (abnormal relaxation pattern). MMode 2D Measurements and Calculations IVSd 1.1 cm LVIDd 3.9 cm LVIDs 2.7 cm LVPWd 1.1 cm IVS/LVPW 1.0 FS 30.5 % EDV(Teich) 67.9 ml ESV(Teich) 28.1 ml EF(Teich) 58.5 % EDV(cubed) 61.6 ml ESV(cubed) 20.7 ml EF(cubed) 66.4 % LV mass(C)d 136.9 grams LV mass(C)dI 67.1 grams/m\S\2 SV(Teich) 39.7 ml SI(Teich) 19.5 ml/m\S\2 SV(cubed) 40.9 ml SI(cubed) 20.0 ml/m\S\2 Ao root diam 4.0 cm Ao root area 12.7 cm\S\2 ACS 1.5 cm asc Aorta Diam 3.1 cm LVAd ap4 29.9 cm\S\2 LVLd ap4 7.2 cm EDV(MOD-sp4) 103.6 ml EDV(sp4-el) 105.5 ml LVAs ap4 17.4 cm\S\2 LVLs ap4 6.2 cm ESV(MOD-sp4) 42.2 ml ESV(sp4-el) 41.2 ml EF(MOD-sp4) 59.3 % EF(sp4-el) 60.9 % LVAd ap2 19.4 cm\S\2 LVLd ap2 5.6 cm EDV(MOD-sp2) 52.1 ml EDV(sp2-el) 56.5 ml LVAs ap2 12.9 cm\S\2 LVLs ap2 5.9 cm ESV(MOD-sp2) 22.7 ml ESV(sp2-el) 24.2 ml EF(MOD-sp2) 56.4 % EF(sp2-el) 57.3 % LVLd %diff -27.25 % EDV(MOD-bp) 79.3 ml LVLs %diff -6.02 % ESV(MOD-bp) 30.4 ml EF(MOD-bp) 61.6 % SV(MOD-sp4) 61.4 ml SI(MOD-sp4) 30.1 ml/m\S\2 SV(MOD-sp2) 29.4 ml SI(MOD-sp2) 14.4 ml/m\S\2 SV(MOD-bp) 48.9 ml SI(MOD-bp) 23.9 ml/m\S\2 SV(sp4-el) 64.3 ml SI(sp4-el) 31.5 ml/m\S\2 SV(sp2-el) 32.4 ml SI(sp2-el) 15.9 ml/m\S\2 Doppler Measurements and Calculations MV E max yanelis 87.6 cm/sec MV A max yanelis 114.5 cm/sec MV E/A 0.77 MV dec time 0.39 sec Ao V2 max 62.7 cm/sec Ao max PG 1.6 mmHg Ao max PG (full) -0.06 mmHg LV V1 max PG 1.6 mmHg LV V1 max 63.8 cm/sec PA V2 max 78.5 cm/sec PA max PG 2.5 mmHg PA acc slope 319.5 cm/sec\S\2 PA acc time 0.16 sec TR max yanelis 80.1 cm/sec PA pr(Accel) 6.1 mmHg
--- NOTE | 2017-08-03 17:41 | Progress Note ---
Medicine Progress Note Date & Time of Visit: Aug 03, 2017 at 17:41. Subjective Patient reports feeling somewhat better today, but still uncomfortable with the amount of ascites and abdominal distension. Still feels he cannot lay back or take full deep breaths. No overnight events noted. Tolerating PO but appetite has been poor. Objective Last 8 Hrs Date Time Temp Pulse Resp B/P (MAP) Pulse Ox O2 Delivery O2 Flow Rate FiO2 08/03/17 16:00 Room Air 08/03/17 15:43 36.7 81 17 134/81 (98) 93 Room Air Physical Exam: GENERAL: Patient is in no acute distress. HEENT: No acute trauma, normocephalic, mucous membranes moist, no nasal congestion, no scleral icterus. NECK: No stridor, trachea is midline LUNGS: Clear to auscultation bilaterally, no wheeze, no rhonchi, breath sounds equal. HEART: Without murmurs gallops or rubs, regular rate and rhythm. ABDOMEN: Soft, nontender, bowel sounds positive, distended EXTREMITIES: No cyanosis: LLE edema, right AKA; moving all extremities without pain or difficulty, no signs for acute trauma. NEUROLOGIC: Oriented x 3, no acute motor or sensory deficits, no focal weakness. SKIN: No rash, no jaundice, no diaphoresis. Laboratory Results: Last 24 Hours Test 08/02/17 19:35 08/03/17 07:08 08/03/17 08:21 08/03/17 11:31 Bedside Glucose 183 mg/dl 95 mg/dl 180 mg/dl White Blood Count 4.48 K/uL Red Blood Count 3.24 M/uL Hemoglobin 10.8 g/dL Hematocrit 30.9 % Mean Corpuscular Volume 95.4 fL Mean Corpuscular Hemoglobin 33.3 pg Mean Corpuscular Hemoglobin Concent 35.0 g/dl RDW Standard Deviation 47.7 fL RDW Coefficient of Variation 13.6 % Platelet Count 89 K/uL Mean Platelet Volume 10.5 fL Platelet Estimate DECREASED Prothrombin Time 12.7 SECONDS Prothromb Time International Ratio 1.2 Activated Partial Thromboplast Time 35.9 SECONDS Partial Thromboplastin Ratio 1.4 Sodium Level 140 mmol/L Potassium Level 4.3 mmol/L Chloride Level 109 mmol/L Carbon Dioxide Level 26 mmol/L Anion Gap 4.0 mmol/L Blood Urea Nitrogen 15 mg/dl Creatinine 1.13 mg/dl Est Creatinine Clear Calc Drug Dose 60.1 ml/min Estimated GFR () 72.3 Estimated GFR (Non- 62.4 BUN/Creatinine Ratio 13.0 Random Glucose 101 mg/dl Estimated Average Glucose 140 mg/dl Hemoglobin A1c 6.5 % Calcium Level 7.4 mg/dl Total Bilirubin 0.9 mg/dl Aspartate Amino Transf (AST/SGOT) 30 U/L Alanine Aminotransferase (ALT/SGPT) 25 U/L Alkaline Phosphatase 101 U/L Total Protein 5.6 gm/dl Albumin 2.4 gm/dl Globulin 3.2 gm/dl Albumin/Globulin Ratio 0.8 Assessment & Plan ACUTE DECOMPENSATED CIRRHOSIS: -no prior history of ascites, no prior hx of cirrhosis but patient was a heavy alcohol user in the past and drinks mild to moderate amounts now -GI consulted, appreciate management, patient underwent paracentesis to remove 4L yesterday, and is ordered to have a repeat paracentesis tomorrow; have started furosemide and spironolactone and albumin pre and post para -Abdomen US: hepatic and portal veins patent, ascites present -TTE report: * -- Conclusions -- * Ejection Fraction = 55-60%. * Aortic valve sclerosis moderate, without significant aortic valvular stenosis. * Calcified mitral apparatus. * There is moderate to severe mitral annular calcification. * There is no mitral valve stenosis. * Mild aortic root dilatation. * Grade I diastolic dysfunction, (abnormal relaxation pattern). -CT abd pelvis with large volume ascites, cirrhotic liver, trace bilateral pleural effusions -BNP elevated to 1298, TTE as above CAD: -s/p prior CABG -Stable, no CP or related symptoms -EKG without acute changes DM II: -HbA1c: 6.5% -hold home agents while in hospital -insulin correction scale while in hospital -BSG AC and HS PAROXYSMAL ATRIAL FIB: -NSR on EKG -continue metoprolol HTN: -Normotensive -continue metoprolol HYPOTHYROIDISM: -continue levothyroxine BPH: -Continue avodart, flomax -Bladder scan q shift OSTEOPOROSIS: -continue fosamax weekly THROMBOCYTOPENIA: -chronic -Platelets 112-->89 -no bleeding noted -SCDs for DVT prophylaxis Current Inpatient Medications: Current Inpatient Medications Medications (Trade) Dose Ordered Sig/Milena Route Start Time Stop Time Status Last Admin Dose Admin Ioversol (Optiray 320) 100 ml UD PRN IV 08/02/17 07:15 08/06/17 07:14 Insulin Aspart (novoLOG ASPART) SLIDING SCALE If C... ACHS SC 08/02/17 11:00 09/01/17 10:59 08/03/17 17:27 2 UNITS Glucose (Glucose 40% Gel) 15-30 GRAMS 15 GRAMS... UD PRN PO 08/02/17 09:30 09/01/17 09:29 Glucose (Glucose Chew Tab) 4-8 Tablets 4 Tabl... UD PRN PO 08/02/17 09:30 09/01/17 09:29 Dextrose (Dextrose 50% 50ML Syringe) 25-50ML OF 50% DW IV FOR... UD PRN IV 08/02/17 09:30 09/01/17 09:29 Glucagon (Glucagon Inj) 1 mg UD PRN SQ 08/02/17 09:30 09/01/17 09:29 Alendronate Sodium (Fosamax Tab) 70 mg We@0630 PO 08/02/17 21:00 09/01/17 20:59 08/02/17 20:45 70 MG Levothyroxine Sodium (Synthroid Tab) 88 mcg DAILYBB PO 08/03/17 06:30 09/02/17 06:29 08/03/17 06:19 88 MCG Metoprolol Succinate (Toprol Xl Tab) 25 mg HS PO 08/02/17 21:00 09/01/17 20:59 08/02/17 20:45 25 MG Multivitamins/ Minerals (Multivitamin W/ Minerals Tab) 1 tab DAILY PO 08/03/17 09:00 09/02/17 08:59 08/03/17 08:23 1 TAB Tamsulosin HCl (Flomax Cap) 0.4 mg QPM PO 08/02/17 21:00 09/01/17 20:59 08/02/17 20:45 0.4 MG Tramadol HCl (Ultram Tab) 25 mg TID PRN PO 08/02/17 10:45 09/01/17 10:44 Miscellaneous Information (Order Awaiting Action) 1 ea QS N/A 08/02/17 16:00 09/01/17 15:59 Pantoprazole Sodium (Protonix Tab) 40 mg QAM PO 08/03/17 09:00 09/02/17 08:59 08/03/17 08:24 40 MG Furosemide (Lasix Tab) 40 mg QAM PO 08/03/17 09:00 09/02/17 08:59 08/03/17 08:24 40 MG Spironolactone (Aldactone Tab) 100 mg QAM PO 08/03/17 09:00 09/02/17 08:59 08/03/17 08:23 100 MG Insulin Glargine (Lantus Solostar Pen) 5 units HS SC 08/02/17 21:00 09/01/17 20:59 08/02/17 20:45 5 UNITS Albumin Human (Albumin 25%) 12.5 gm TODAY@0700,0800,1100,1200 IV 08/04/17 07:00 08/04/17 13:00
[2017-08-03] MEDS: TAMSULOSIN HCL 0.4 MG CAP PO SCH (20:44)
[2017-08-03] MEDS: METOPROLOL SUCC 25MG EXT REL TAB PO SCH (20:44)
[2017-08-03] MEDS: INSULIN GLARGINE SOLOSTAR 100 UNITS/ML 3 ML PEN SC SCH (20:46)
[2017-08-03 22:16] VITALS: BP 124/75; PULSE 85; TEMP 36.7; O2SAT 93
[2017-08-04] VITALS (7 sets, daily range): BP systolic 91–157; BP diastolic 59–79; PULSE 77–86; TEMP 36.7–36.8; O2SAT 92–95
[2017-08-04] MEDS: LEVOTHYROXINE 88 MCG TAB PO SCH (06:37)
[2017-08-04] MEDS: ALBUMIN HUMAN 25% 12.5 GM/50 ML VIAL IV SCH ×4 (06:37→17:02)
[2017-08-04] MEDS: AVODART-ORDER AWAITING ACTION SCH ×3 (07:09→23:00)
[2017-08-04] MEDS: CEROVITE ADV FORMULA TAB PO SCH (07:50)
[2017-08-04] MEDS: PANTOprazole SOD 40 MG TAB PO SCH (07:51)
[2017-08-04] MEDS: SPIRONOLACTONE 100 MG TAB PO SCH (07:51)
[2017-08-04] MEDS: FUROSEMIDE 40 MG TAB PO SCH (07:52)
[2017-08-04] MEDS: INSULIN ASPART 100 UNITS/ML 3 ML PEN SC SCH ×4 (08:46→20:47)
[2017-08-04 09:36] LABS: HEMATOCRIT 34.3 % (42-52); HEMOGLOBIN 11.9 g/dL (14.0-18.0); MEAN CELL VOLUME 95.8 fL (80-100); MEAN CORPUSCULAR HEMOGLOBIN 33.2 pg (25-34); MEAN CORPUSCULAR HGB CONC 34.7 g/dl (32-36); RED CELL DISTRIBUTION WIDTH CV 13.6 % (11.5-14.5); RED CELL DISTRIBUTION WIDTH SD 48.1 fL (36.4-46.3); WHITE BLOOD COUNT 5.19 K/uL (4.8-10.8)
[2017-08-04 09:39] LABS: MEAN PLATELET VOLUME 10.3 fL (7.4-10.4); PLATELET COUNT 94 K/uL (130-400)
[2017-08-04 10:05] LABS: CALCIUM 7.9 mg/dl (8.5-10.1); CREATININE 1.27 mg/dl (0.60-1.40); POTASSIUM 4.1 mmol/L (3.5-5.1)
--- NOTE | 2017-08-04 11:26 | Progress Note ---
Progress Note Date of Service Aug 04, 2017. (Kailee Conner CRNP) Progress Note GI short note: 76 yo male with new diagnosis of cirrhosis made on imaging when admitted for new onset ascites. MELD 10. He is s/p 4L paracentesis on 08/03 w Albumin repletion. SAAG and protein values consistent with liver source. Planning for repeat paracentesis today, then should be ok for DC home w f/u in GI clinic in 1 -2 week's time (will try to make appt in [facility]). Chart, labs reviewed. Pt currently having distended abd but denies any abd pain , n/v. Tolerating diet well. - U/S paracentesis ordered - 2g Na diet - Continue Lasix 40mg daily, Aldactone 100mg daily - ETOH cessation - Will f/u liver serologies, and plan for outpt f/u w possible titration of diuretics, also Hep A & B vaccination if indicated, EGD to r/o varices. (Kailee Conner CRNP) Attg add: No complaints. His exam is unchanged from yesterday. Awaiting paracentesis, cont diuretics. Will arrange outpt f/u. OK for dc today, please call with questions. (Pepito Ross M.D.)
[2017-08-04] MEDS ORDERED: ACETAMINOPHEN 500 MG TAB PO PRN (15:00)
--- NOTE | 2017-08-04 15:00 | DIAGNOSTIC IMAGING REPORT ---
PARACENTESIS ABDOMEN W/IMAGING CLINICAL HISTORY: ascites ascites COMPARISON STUDY: 08/02/2017 PROCEDURE: The risks, benefits, and alternatives to the procedure were discussed with the patient including the risk of bleeding, infection and injury to adjacent structures. The patient agreed to the procedure and informed written consent was obtained. The procedure was performed by Dr. Zepeda following a time out. Following real-time ultrasound localization, the skin was prepped and draped. Following local anesthesia with Xylocaine, the sheath paracentesis needle was inserted and approximately 4 liters of straw-colored fluid was removed by vacuum suction. The patient tolerated the procedure well and no immediate complications were evident. IMPRESSION: Ultrasound-guided paracentesis with removal of 4 liters of ascites. No complications at the time of the study. The above report was generated using voice recognition software. It may contain grammatical, syntax or spelling errors. Electronically signed by: Can Zepeda M.D. 08/04/2017 2:58 PM Dictated Date/Time: 08/04/2017 2:57 PM
--- NOTE | 2017-08-04 18:04 | Progress Note ---
Medicine Progress Note Date & Time of Visit: Aug 04, 2017 at 18:04. Subjective Patient feels his abdomen is distended again and is concerned as well as uncomfortable. No overnight events noted. He does report some increased SOB as a result of the ascites and also reports some orthopnea. No other complaints at this time. He reports he is urinating better/more frequently. Objective Last 8 Hrs Date Time Temp Pulse Resp B/P (MAP) Pulse Ox O2 Delivery O2 Flow Rate FiO2 08/04/17 17:59 36.7 81 18 136/71 (92) 08/04/17 16:59 81 145/72 (96) 08/04/17 15:52 81 20 140/77 (98) 95 Room Air 08/04/17 13:20 36.8 85 16 122/70 (87) 94 Room Air Physical Exam: GENERAL: Patient is in no acute distress. HEENT: No acute trauma, normocephalic, mucous membranes moist, no nasal congestion, no scleral icterus. NECK: No stridor, trachea is midline LUNGS: Diminished bases bilaterally, no wheeze, no rhonchi, breath sounds equal. HEART: Without murmurs gallops or rubs, regular rate and rhythm. ABDOMEN: Soft, nontender, bowel sounds positive, distended EXTREMITIES: No cyanosis: LLE edema, right AKA; moving all extremities without pain or difficulty, no signs for acute trauma. NEUROLOGIC: Oriented x 3, no acute motor or sensory deficits, no focal weakness. SKIN: No rash, no jaundice, no diaphoresis. Laboratory Results: Last 24 Hours Test 08/03/17 19:35 08/04/17 07:33 08/04/17 09:20 08/04/17 11:31 Bedside Glucose 173 mg/dl 121 mg/dl 146 mg/dl White Blood Count 5.19 K/uL Red Blood Count 3.58 M/uL Hemoglobin 11.9 g/dL Hematocrit 34.3 % Mean Corpuscular Volume 95.8 fL Mean Corpuscular Hemoglobin 33.2 pg Mean Corpuscular Hemoglobin Concent 34.7 g/dl RDW Standard Deviation 48.1 fL RDW Coefficient of Variation 13.6 % Platelet Count 94 K/uL Mean Platelet Volume 10.3 fL Sodium Level 137 mmol/L Potassium Level 4.1 mmol/L Chloride Level 107 mmol/L Carbon Dioxide Level 27 mmol/L Anion Gap 3.0 mmol/L Blood Urea Nitrogen 16 mg/dl Creatinine 1.27 mg/dl Est Creatinine Clear Calc Drug Dose 53.5 ml/min Estimated GFR () 62.7 Estimated GFR (Non- 54.1 BUN/Creatinine Ratio 12.3 Random Glucose 165 mg/dl Calcium Level 7.9 mg/dl Test 08/04/17 16:52 Bedside Glucose 186 mg/dl Assessment & Plan ACUTE DECOMPENSATED CIRRHOSIS: -no prior history of ascites, no prior hx of cirrhosis but patient was a heavy alcohol user in the past and drinks mild to moderate amounts now -GI consulted, appreciate management, patient underwent paracentesis to remove 4L, and is ordered to have a repeat paracentesis today; has been started on furosemide and spironolactone and albumin pre and post para; patient will have outpatient follow up with GI and variceal screening as an outpatient as well -Abdomen US: hepatic and portal veins patent, ascites present -TTE report: * -- Conclusions -- * Ejection Fraction = 55-60%. * Aortic valve sclerosis moderate, without significant aortic valvular stenosis. * Calcified mitral apparatus. * There is moderate to severe mitral annular calcification. * There is no mitral valve stenosis. * Mild aortic root dilatation. * Grade I diastolic dysfunction, (abnormal relaxation pattern). -CT abd/pelvis: large volume ascites, cirrhotic liver, trace bilateral pleural effusions -BNP elevated to 1298, TTE as above CAD: -s/p prior CABG -Stable, no CP or related symptoms -EKG without acute changes DM II: -HbA1c: 6.5% -hold home agents while in hospital -insulin correction scale while in hospital -BSG AC and HS PAROXYSMAL ATRIAL FIB: -NSR on EKG -continue metoprolol HTN: -Normotensive -continue metoprolol HYPOTHYROIDISM: -continue levothyroxine BPH: -Continue avodart, flomax -Bladder scan q shift OSTEOPOROSIS: -continue fosamax weekly THROMBOCYTOPENIA: -chronic -Platelets 112-->89-->92 -no bleeding noted -SCD for DVT prophylaxis Current Inpatient Medications: Current Inpatient Medications Medications (Trade) Dose Ordered Sig/Milena Route Start Time Stop Time Status Last Admin Dose Admin Ioversol (Optiray 320) 100 ml UD PRN IV 08/02/17 07:15 08/06/17 07:14 Insulin Aspart (novoLOG ASPART) SLIDING SCALE If C... ACHS SC 08/02/17 11:00 09/01/17 10:59 08/04/17 17:04 4 UNITS Glucose (Glucose 40% Gel) 15-30 GRAMS 15 GRAMS... UD PRN PO 08/02/17 09:30 09/01/17 09:29 Glucose (Glucose Chew Tab) 4-8 Tablets 4 Tabl... UD PRN PO 08/02/17 09:30 09/01/17 09:29 Dextrose (Dextrose 50% 50ML Syringe) 25-50ML OF 50% DW IV FOR... UD PRN IV 08/02/17 09:30 09/01/17 09:29 Glucagon (Glucagon Inj) 1 mg UD PRN SQ 08/02/17 09:30 09/01/17 09:29 Alendronate Sodium (Fosamax Tab) 70 mg We@0630 PO 08/02/17 21:00 09/01/17 20:59 08/02/17 20:45 70 MG Levothyroxine Sodium (Synthroid Tab) 88 mcg DAILYBB PO 08/03/17 06:30 09/02/17 06:29 08/04/17 06:37 88 MCG Metoprolol Succinate (Toprol Xl Tab) 25 mg HS PO 08/02/17 21:00 09/01/17 20:59 08/03/17 20:44 25 MG Multivitamins/ Minerals (Multivitamin W/ Minerals Tab) 1 tab DAILY PO 08/03/17 09:00 09/02/17 08:59 08/04/17 07:50 1 TAB Tamsulosin HCl (Flomax Cap) 0.4 mg QPM PO 08/02/17 21:00 09/01/17 20:59 08/03/17 20:44 0.4 MG Tramadol HCl (Ultram Tab) 25 mg TID PRN PO 08/02/17 10:45 09/01/17 10:44 Miscellaneous Information (Order Awaiting Action) 1 ea QS N/A 08/02/17 16:00 09/01/17 15:59 Pantoprazole Sodium (Protonix Tab) 40 mg QAM PO 08/03/17 09:00 09/02/17 08:59 08/04/17 07:51 40 MG Furosemide (Lasix Tab) 40 mg QAM PO 08/03/17 09:00 09/02/17 08:59 08/04/17 07:52 40 MG Spironolactone (Aldactone Tab) 100 mg QAM PO 08/03/17 09:00 09/02/17 08:59 08/04/17 07:51 100 MG Insulin Glargine (Lantus Solostar Pen) 5 units HS SC 08/02/17 21:00 09/01/17 20:59 08/03/17 20:46 5 UNITS Acetaminophen (Tylenol Tab) 1,000 mg Q8H PRN PO 08/04/17 15:00 09/03/17 14:59
[2017-08-04] MEDS: METOPROLOL SUCC 25MG EXT REL TAB PO SCH (20:47)
[2017-08-04] MEDS: INSULIN GLARGINE SOLOSTAR 100 UNITS/ML 3 ML PEN SC SCH (20:47)
[2017-08-04] MEDS: TAMSULOSIN HCL 0.4 MG CAP PO SCH (20:48)
[2017-08-05] MEDS: LEVOTHYROXINE 88 MCG TAB PO SCH (05:52)
[2017-08-05 08:00] VITALS: O2SAT 93
[2017-08-05] MEDS: AVODART-ORDER AWAITING ACTION SCH (08:00)
[2017-08-05] MEDS: INSULIN ASPART 100 UNITS/ML 3 ML PEN SC SCH ×2 (08:12→12:18)
[2017-08-05] MEDS: FUROSEMIDE 40 MG TAB PO SCH (08:13)
[2017-08-05] MEDS: SPIRONOLACTONE 100 MG TAB PO SCH (08:13)
[2017-08-05] MEDS: CEROVITE ADV FORMULA TAB PO SCH (08:14)
[2017-08-05] MEDS: PANTOprazole SOD 40 MG TAB PO SCH (08:14)
[2017-08-05 08:27] VITALS: BP 115/70; PULSE 74; TEMP 36.8; O2SAT 91
[2017-08-05] MEDS ORDERED: SPRN100 PO (10:43)
[2017-08-05] MEDS ORDERED: PRT40 PO (10:43)
[2017-08-05] MEDS ORDERED: LSX40 PO (10:43)
--- NOTE | 2017-08-05 11:01 | Discharge Instructions ---
Discharge Instructions Date of Service Aug 05, 2017. Admission Reason for Admission: Anasarca Discharge Discharge Diagnosis / Problem: Decompensated liver cirrhosis with ascites Discharge Goals Goal(s): Diagnostic testing, Therapeutic intervention Activity Recommendations Activity Limitations: resume your previous activity Please refrain from any/all alcohol use Please limit tylenol use to no more than 2, 000 mg in 24 hours . Instructions / Follow-Up Instructions / Follow-Up Perform a daily weight and keep general track of how often you are urinating in order to monitor your hydration status Please call Dr. Skaggs for a hospital follow up appointment, the office was not open today Please expect to receive a call from Seymour RAMOS regarding scheduling an appointment for follow up Current Hospital Diet Patient's current hospital diet: Low Sodium Diet (2gm Na), AHA Diet (Heart Healthy), Diabetes Type 2 Diet Discharge Diet Recommended Diet: AHA Diet (Heart Healthy), Low Sodium Diet (2gm Na), Diabetes Type 2 Diet Procedures Procedures Performed: Paracentesis x2 Pending Studies Studies pending at discharge: yes List of pending studies: Reference labs for hepatitis Laboratory Results Hemoglobin A1c Test 08/03/17 07:08 Range/Units Estimated Average Glucose 140 mg/dl Hemoglobin A1c 6.5 H 4.5-5.6 % Medical Emergencies . Who to Call and When: Medical Emergencies: If at any time you feel your situation is an emergency, please call 911 immediately. . Non-Emergent Contact Non-Emergency issues call your: Primary Care Provider, [employer] Pl[employer]rer Call Non-Emergent contact if: temperature is above 101, your pain is worsening , you have any medication questions . . "Provider Documentation" section prepared by Michelle Parson. .
--- NOTE | 2017-08-05 11:02 | Discharge Summary ---
Discharge Summary Date of Service Aug 05, 2017. Discharge Summary Admission Date: Aug 02, 2017 at 09:07 Discharge Date: Aug 05, 2017 Discharge Disposition: Home with services Principal Diagnosis: Decompensated cirrhosis, ascites, alcoholic cirrhosis Procedures: TTE Paracentesis x 2 (4L removed each time) Consultations: GI Medication Reconciliation New Medications: Furosemide (Furosemide) 40 Mg Tab 40 MG PO QAM, #30 TAB Pantoprazole (Pantoprazole Sodium) 40 Mg Tab 40 MG PO QAM, #30 TAB Spironolactone (Spironolactone) 100 Mg Tab 100 MG PO QAM, #30 TAB Continued Medications: Alendronate Sodium (Alendronate Sodium) 70 Mg Tab 70 MG PO WK TAKES ON WEDNESDAYS. Dutasteride (Avodart) 0.5 Mg Cap 0.5 MG PO QDD, CAP Insulin Aspart (Novolog Flexpen) 100 Units/Ml Inj 5-7 UNITS SC QDD Insulin Glargine (Basaglar Kwikpen) 100 Unit/Ml Inj 10 UNITS SC HS Levothyroxine Sodium (Synthroid) 88 Mcg Tab 88 MCG PO QAM, TAB Metoprolol Succ (Toprol Xl) (Toprol-Xl) 25 Mg Tabcr 25 MG PO HS, #30 TAB Multiple Vitamins W/ Minerals (Eye Vitamins) 1 Cap Cap 1 CAP PO DAILY Multivitamins/Minerals (Mvi With Minerals) Tab 1 TAB PO DAILY, TAB Probiotic Product (Probiotic Acidophilus) 1 Cap Cap 1 CAP PO DAILY Tamsulosin Hcl (Flomax) 0.4 Mg Cap 0.4 MG PO QPM, CAP Tramadol (Ultram) 50 Mg Tab 0.5-1 TAB PO TID PRN for Pain, TAB Discontinued Medications: Pantoprazole (Protonix) 20 Mg Tab 20 MG PO QAM, #30 TAB Admission Information HPI (per Admitting provider): Patient is a 76-year-old male with a PMH of CAD (s/p CABG), DM II, paroxysmal A. fib, HTN, h/o heavy alcohol use and other medical problems listed below who presents with abdominal fullness. States that he has had fluid buildup in his belly for the past 2 weeks with associated discomfort. Over the past few days, patient has become short of breath with any type of exertion. Also has increased swelling and left leg. Denies previous diagnosis of cirrhosis or CHF. Previous history of heavy drinking but has decreased to 1 drink daily for the past 10-15 years. Endorses intermittent nausea and diarrhea over the past few weeks. Poor PO intake due to decreased appetite. Decreased urine output. Denies fever, chills, lightheadedness, headache, visual changes, cough, chest pain, abdominal pain, back pain, dysuria, melena, hematochezia or constipation. Per daughters at bedside, patient has dementia but no acute mental decompensation. Lives with in a house and ambulates by scooter. PCP is Dr. Skaggs. Physical Exam (per Admitting): General Appearance: WD/WN, no apparent distress Head: normocephalic, atraumatic Eyes: normal inspection, PERRL, sclerae normal ENT: normal ENT inspection, hearing grossly normal, pharynx normal (dry mucous membranes ) Neck: supple, thyroid normal, trachea midline Respiratory/Chest: chest non-tender, lungs clear, normal breath sounds, no respiratory distress, no accessory muscle use Cardiovascular: regular rate, rhythm, normal peripheral pulses, + systolic murmur Abdomen/GI: normal bowel sounds (distant), non tender, no pulsatile mass, + distended (Firm, + fluid wave, no guarding ) Back: normal inspection Extremities/Musculoskelatal: + swelling (L leg 3+ pitting edema ), + pertinent finding (s/p R AKA) Neurologic/Psych: no motor/sensory deficits, alert, normal mood/affect, oriented x 3 Skin: normal color, warm/dry Hospital Course ACUTE DECOMPENSATED CIRRHOSIS: -no prior history of ascites, no prior hx of cirrhosis but patient was a heavy alcohol user in the past and drinks mild to moderate amounts now -GI consulted, appreciate management, patient underwent paracentesis to remove 4L, and had a repeat paracentesis yesterday where 4L were again drained; has been started on furosemide and spironolactone and albumin pre and post para; patient will have outpatient follow up with GI and variceal screening as an outpatient as well -Abdomen US: hepatic and portal veins patent, ascites present -TTE report: * -- Conclusions -- * Ejection Fraction = 55-60%. * Aortic valve sclerosis moderate, without significant aortic valvular stenosis. * Calcified mitral apparatus. * There is moderate to severe mitral annular calcification. * There is no mitral valve stenosis. * Mild aortic root dilatation. * Grade I diastolic dysfunction, (abnormal relaxation pattern). -CT abd/pelvis: large volume ascites, cirrhotic liver, trace bilateral pleural effusions -BNP elevated to 1298, TTE as above -counseled patient about need to refrain from any alcohol use and minimize acetaminophen use -spoke to his daughter Marquita and updated CAD: -s/p prior CABG -Stable, no CP or related symptoms -EKG without acute changes DM II: -HbA1c: 6.5% -hold home agents while in hospital -insulin correction scale while in hospital -BSG AC and HS PAROXYSMAL ATRIAL FIB: -NSR on EKG -continue metoprolol HTN: -Normotensive -continue metoprolol HYPOTHYROIDISM: -continue levothyroxine BPH: -Continue avodart, flomax -Bladder scan q shift OSTEOPOROSIS: -continue fosamax weekly THROMBOCYTOPENIA: -chronic -Platelets 112-->89-->94 -no bleeding noted -SCD for DVT prophylaxis PHYSICAL EXAM: GENERAL: Patient is in no acute distress. HEENT: No acute trauma, normocephalic, mucous membranes moist, no nasal congestion, no scleral icterus. NECK: No stridor, trachea is midline LUNGS: Diminished bases bilaterally, no wheeze, no rhonchi, breath sounds equal. HEART: Without murmurs gallops or rubs, regular rate and rhythm. ABDOMEN: Soft, nontender, bowel sounds positive EXTREMITIES: No cyanosis: LLE edema, right AKA; moving all extremities without pain or difficulty, no signs for acute trauma. NEUROLOGIC: Oriented x 3, no acute motor or sensory deficits, no focal weakness. SKIN: No rash, no jaundice, no diaphoresis. Total time spent on discharge = 37 This includes examination of the patient, discharge planning, medication reconciliation, and communication with other providers. Discharge Instructions see patient instructions
[2017-08-05 11:38] VITALS: BP 115/70; PULSE 74; TEMP 36.8; O2SAT 91
[2017-08-07 15:09] LABS: ANA SCREEN TC 249X NEGATIVE (NEGATIVE); HEPATITIS A IGM TC 51813E NON-REACTIVE (NON-REACTIVE); HEPATITIS B CORE IGM TC51854R NON-REACTIVE (NON-REACTIVE)
== END 2017-08-05 13:45 | disposition home health service (06) | DRG 434 ==
LOC: EDBD 05:39 → C.EDA 05:41 → C.MS2W 09:07 → ENRESERV 09:22
PROVIDERS: ADMIT Internal Medicine; ATTEND Internal Medicine
PROC: 0W9G3ZZ Drainage of Peritoneal Cavity, Percutaneous Approach (ICD-10-PCS; principal; 2017-08-02)
PROC: 0W9G3ZZ Drainage of Peritoneal Cavity, Percutaneous Approach (ICD-10-PCS; 2017-08-04)
DX: K70.31 Alcoholic cirrhosis of liver with ascites (principal); I25.10 Atherosclerotic heart disease of native coronary artery without angina pectoris; E11.9 Type 2 diabetes mellitus without complications; K21.9 Gastro-esophageal reflux disease without esophagitis; I48.0 Paroxysmal atrial fibrillation; I10 Essential (primary) hypertension; D69.6 Thrombocytopenia, unspecified; E03.9 Hypothyroidism, unspecified; F03.90 Unspecified dementia, unspecified severity, without behavioral disturbance, psychotic disturbance, mood disturbance, and anxiety; M81.0 Age-related osteoporosis without current pathological fracture; F10.10 Alcohol abuse, uncomplicated; Z79.4 Long term (current) use of insulin; Z79.899 Other long term (current) drug therapy; Z87.891 Personal history of nicotine dependence; Z89.611 Acquired absence of right leg above knee; Z95.1 Presence of aortocoronary bypass graft; Z88.1 Allergy status to other antibiotic agents; Z88.8 Allergy status to other drugs, medicaments and biological substances